=== PATIENT | female | born 1980 | race Two or more races ===

== ENCOUNTER 2019-09-10 12:29 | Emergency (ER) | payer OTHER ==
[~2019-09-10] VITALS: Ht 162.6 cm; Wt 72.6 kg
[2019-09-10 12:50] VITALS: BP 128/84
--- NOTE | 2019-09-10 12:50 | NUR ---
ED Nurse Note: Patient walked in to ER from home due to Rt wrist pain / related to work. Patient alert and oriented x4 and ambulatory. Skin clean and intact. Calm and cooperative. No cardiac or pulmonary distress noted at this time.
--- NOTE | 2019-09-10 13:08 | Emergency Room Report ---
History of Present Illness General Chief Complaint: Pain Source: Patient Present Illness HPI 39-year-old female with no significant past medical history here complaining of pain in right wrist that started this morning after pulling incident at work. Patient denies any direct fall or injury to her right wrist. Reports that she was pushing packages at work as she felt a pull in her right wrist rating pain 10 out of 10 without radiation. Denies tingling and numbness. Has not iced the affected area medication for symptom relief. Patient has full range of motion, no bony tenderness noted. Denies all other injuries, chest pain, shortness of breath, palpitation, no other associated symptoms. This is a Worker's Compensation case Allergies: Coded Allergies: No Known Allergies (Unverified , 09/10/19) Patient History Past Medical History: see triage record Past Surgical History: unable to obtain Pertinent Family History: none Last Menstrual Period: 07/2019 Now: No : 3 Para: 3 Immunizations: UTD Reviewed Nursing Documentation: PMH: Agreed; PSxH: Agreed Nursing Documentation-PMH Past Medical History: No Stated History Review of Systems All Other Systems: negative except mentioned in HPI Physical Exam Vital Signs Date Time Temp Pulse Resp B/P (MAP) Pulse Ox O2 Delivery O2 Flow Rate FiO2 09/10/19 12:40 97.9 87 18 128/84 (99) 95 Room Air Sp02 EP Interpretation: reviewed, normal General Appearance: no apparent distress, alert, GCS 15, non-toxic Head: normocephalic, atraumatic Eyes: bilateral eye normal inspection, bilateral eye PERRL ENT: hearing grossly normal, normal pharynx, no angioedema, normal voice Neck: full range of motion, supple/symm/no masses Respiratory: chest non-tender, lungs clear, normal breath sounds, no rhonchi, no wheezing, speaking full sentences Cardiovascular #1: regular rate, rhythm, no edema, no murmur Cardiovascular #2: 2+ radial (R), 2+ radial (L) Gastrointestinal: normal bowel sounds, non tender, soft, non-distended, no guarding, no rebound Rectal: deferred Genitourinary: normal inspection, no CVA tenderness Musculoskeletal: back normal, digits/nails normal, gait/station normal, normal range of motion, non-tender Neurologic: alert, oriented x3, responsive, motor strength/tone normal, sensory intact, speech normal Psychiatric: normal inspection Skin: no rash Lymphatic: no adenopathy Procedures Splinting Splinting : Consent: Verbal Location: right wrist Pre-Made Type: AROLDO wrap Pre-Proc Neuro Vasc Exam: normal Post-Proc Neuro Vasc Exam: normal Patient Tolerated: Well Complications: None Medical Decision Making PA Attestation All my diagnosis and treatment plans were reviewed ad discussed with my supervising physician Dr. Rowland Diagnostic Impression: Primary Impression: Right wrist sprain ER Course 39-year-old female with no significant past medical history here complaining of pain in right wrist that started this morning after pulling incident at work. Patient denies any direct fall or injury to her right wrist. Reports that she was pushing packages at work as she felt a pull in her right wrist rating pain 10 out of 10 without radiation. Denies tingling and numbness. Has not iced the affected area medication for symptom relief. Patient has full range of motion, no bony tenderness noted. Denies all other injuries, chest pain, shortness of breath, palpitation, no other associated symptoms. This is a Worker's Compensation case Ddx considered but are not limited to : Wrist sprain, wrist strain, wrist fracture Vital signs: are WNL, pt. is afebrile H&PE are most consistent with: Wrist sprain ORDERS: Wrist x-ray, ibuprofen, Robaxin ED INTERVENTIONS: Aroldo wrap, ibuprofen DISCHARGE: At this time pt. is stable for d/c to home. Will provide printed patient care instructions, and any necessary prescriptions. Care plan and follow up instructions have been discussed with the patient prior to discharge. Follow with primary care provider, if worsening symptoms return to the emergency room. He may need to physical therapy and follow-up with orthopedic physician assistant if symptoms continue Other X-Ray Diagnostic Results Other X-Ray Diagnostic Results : X-Ray ordered: right wrist # of Views/Limited Vs Complete: 3 View Indication: Pain EP Interpretation: Yes PA Xray: Interpretation reviewed, by supervising MD, and agrees with findings. Interpretation: no dislocation, no soft tissue swelling, no fractures Impression: No acute disease Electronically Signed by: Toño Todd PA-C Last Vital Signs Date Time Temp Pulse Resp B/P (MAP) Pulse Ox O2 Delivery O2 Flow Rate FiO2 09/10/19 12:50 98.0 81 18 128/84 95 Room Air Disposition: HOME, SELF-CARE Condition: Stable Scripts Methocarbamol* (ROBAXIN-500*) 500 Mg Tablet 500 MG ORAL TID PRN for For Pain, #15 TAB 0 Refills Prov: Toño Tee 09/10/19 Ibuprofen (Ibu) 800 Mg Tablet 800 MG PO BID, #20 TAB Prov: Toño Tee 09/10/19 Patient Instructions: Wrist Sprain Additional Instructions: Take medication as directed, follow-up with your primary care provider, you may need referral to physical therapy and orthopedic physician assistant. If worsening symptoms return to the emergency room. Toño Tee Sep 10, 2019 13:08
[2019-09-10] MEDS ORDERED: ROBAXIN-500MG ORAL (13:09)
[2019-09-10] MEDS ORDERED: IBU800 MG PO (13:09)
--- NOTE | 2019-09-10 13:11 | NUR ---
ED Nurse Note: x-ray at bedside.
[2019-09-10 13:30] VITALS: BP 126/80
--- NOTE | 2019-09-10 13:35 | NUR ---
ED Nurse Note: Pt cleared by health care Provider for discharge. DC instructions/prescription was given and explained to pt and verbalized understanding of teachings. All medical deviecs such as ID band removed. Pt is AAO x4, ambulatory and left with all personal belongings. pt provided workers compensation paper.
--- NOTE | 2019-09-10 14:25 | Diagnostic Imaging Report ---
EXAM: XR Right Wrist Complete, 3 or More Views CLINICAL HISTORY: TRAUMA TECHNIQUE: Frontal, lateral and oblique views of the right wrist. COMPARISON: No relevant prior studies available. FINDINGS: Bones joints: Unremarkable. No acute fracture. No dislocation. Soft tissues: Unremarkable. No radiopaque foreign body. IMPRESSION: No fracture or dislocation
== END 2019-09-10 13:30 | disposition home or self-care (01) ==
LOC: EMR 12:51
DX: S63.501A Unspecified sprain of right wrist, initial encounter (principal); X50.9XXA Other and unspecified overexertion or strenuous movements or postures, initial encounter; Y92.242 Post office as the place of occurrence of the external cause; Y99.0 Civilian activity done for income or pay
CPT/HCPCS: 29125; 99283